=== PATIENT | male | born 2000 ===

== ENCOUNTER 2021-11-11 15:00 | Emergency (ER) | payer OTHER ==
[~2021-11-11] VITALS: Ht 172.7 cm; Wt 99.8 kg
== END 2021-11-11 15:41 | disposition home or self-care (01) ==
LOC: ER 15:00 → EDBD 15:00 → ER 15:41
DX: Z48.02 Encounter for removal of sutures (principal)
CPT/HCPCS: 99281

== ENCOUNTER 2023-11-20 16:15 | Emergency (ER) | payer OTHER ==
[~2023-11-20] VITALS: Ht 170.2 cm; Wt 68.0 kg
[2023-11-20 16:20] VITALS: BP 142/78
[2023-11-20] MEDS ORDERED: Amoxicillin/Clavulanate K 875 MG Tab PO ONE (17:50)
[2023-11-20] MEDS ORDERED: AMOCLA875 PO (18:34)
== END 2023-11-20 18:42 | disposition home or self-care (01) ==
LOC: ER 16:15
DX: S31.31XA Laceration without foreign body of scrotum and testes, initial encounter (principal); T81.31XA Disruption of external operation (surgical) wound, not elsewhere classified, initial encounter; X58.XXXA Exposure to other specified factors, initial encounter
CPT/HCPCS: 12020; 99282-25; A9270